=== PATIENT | female | born 1975 | race Caucasian/White ===

== ENCOUNTER 2018-10-24 23:03 | Emergency (ER) | payer OTHER ==
[~2018-10-24] VITALS: Ht 172.7 cm; Wt 104.3 kg
[2018-10-24 23:13] VITALS: BP 170/110
--- NOTE | 2018-10-24 23:16 | NUR ---
PT AMBULATED TO BED 8.
[2018-10-24] MEDS ORDERED: KETOROLAC 60 MG/2 ML VIAL IM ONE (23:25)
--- NOTE | 2018-10-24 23:39 | NUR ---
43/F PRESENTS TO ED, C/O 11/24 INTERMITTENT L FOOT PAIN, X2.5 WEEKS. REPORTS BURNING SENSATION ON TOP OF FOOT, SHARP PAIN ON SIDES OF FOOT. DENIES TRAUMA/INJURY, PT STATED THAT SHE JUST STARTED FEELING L FOOT PAIN, INITIALLY THOUGHT THAT HER SHOES WERE ON TOO TIGHT. PT REPORTS FALL TODAY WHILE TRYING TO GET UP DUE TO PAIN, DENIES LOC OR HEAD TRAUMA. L FOOT WITH NO OBVIOUS SWELLING, REDNESS, +TENDERNESS TO TOUCH. AOX4, GCS 15, AMBULATORY, RR EVEN AND UNLABORED. DENIES HX, RX OR OTC.
--- NOTE | 2018-10-25 00:06 | NUR ---
Patient discharged with v/s stable. Written and verbal after care instructions given and explained. Patient alert, oriented and verbalized understanding of instructions. Ambulatory with steady gait. All questions addressed prior to discharge. ID band removed. Patient advised to follow up with PMD. Rx of IBUPROFEN WAS given. Patient educated on indication of medication including possible reaction and side effects. Opportunity to ask questions provided and answered.
[2018-10-25 00:08] VITALS: BP 170/110
== END 2018-10-25 00:06 | disposition home or self-care (01) ==
LOC: MED 23:03
DX: M79.672 Pain in left foot (principal); F17.200 Nicotine dependence, unspecified, uncomplicated; Z88.0 Allergy status to penicillin
CPT/HCPCS: 96372; 99283; J1885

== ENCOUNTER 2021-03-09 11:29 | Emergency (ER) | payer OTHER ==
[~2021-03-09] VITALS: Ht 172.7 cm; Wt 115.2 kg
[2021-03-09 11:32] VITALS: BP 193/122
[2021-03-09] MEDS ORDERED: AMOX-1000 PO (12:52)
[2021-03-09] MEDS ORDERED: NAPR-54 PO (12:52)
[2021-03-09] MEDS ORDERED: HYDROcodone/APAP 5/325 MG 1 TAB TAB PO ONE (12:55)
[2021-03-09] MEDS ORDERED: BACITRACIN OINT 500 UNITS/GM PKT TP ONE (13:00)
[2021-03-09] MEDS ORDERED: ACETAMINOPHEN EXTRA STRENGTH 500 MG TAB PO ONE (13:15)
[2021-03-09 13:35] VITALS: BP 193/122
--- NOTE | 2021-03-09 13:35 | NUR ---
Patient discharged with v/s stable. Written and verbal after care instructions given and explained. Patient alert, oriented and verbalized understanding of instructions. Ambulatory with steady gait. All questions addressed prior to discharge. ID band removed. Patient advised to follow up with PMD. Rx of augmentin and naprosyn given. Patient educated on indication of medication including possible reaction and side effects. Opportunity to ask questions provided and answered.
--- NOTE | 2021-03-09 13:43 | NUR ---
ANIMAL DOG BITE REPORT DONE AND FAXED OVER TO [facility]
[2021-03-10] MEDS ORDERED: CLIN300C52 PO (01:10)
== END 2021-03-09 13:35 | disposition home or self-care (01) ==
LOC: MED 11:29
DX: S31.815A Open bite of right buttock, initial encounter (principal); S61.251A Open bite of left index finger without damage to nail, initial encounter; S91.051A Open bite, right ankle, initial encounter; Z88.0 Allergy status to penicillin; Z79.899 Other long term (current) drug therapy; W54.0XXA Bitten by dog, initial encounter; Y93.89 Activity, other specified; Y92.89 Other specified places as the place of occurrence of the external cause; Y99.8 Other external cause status
CPT/HCPCS: 90471; 90715; 99283

== ENCOUNTER 2021-03-09 23:09 | Emergency (ER) | payer OTHER ==
[~2021-03-09] VITALS: Ht 172.7 cm; Wt 115.2 kg
[~2021-03-09 23:09] MED LIST: AMOX-1000 PO; NAPR-54 PO
[2021-03-09 23:37] VITALS: BP 156/83
--- NOTE | 2021-03-09 23:46 | NUR ---
PATIENT TO LOBBY
--- NOTE | 2021-03-10 00:48 | NUR ---
PT BROUGHT TO TRIAGE FOR ERMD ASSESSMENT.
--- NOTE | 2021-03-10 00:52 | NUR ---
CLEANED WOUND WITH NS, PLACED GAUZED AND BACITRACIN OINTMENT PER ERMD
[2021-03-10] MEDS ORDERED: BACITRACIN OINT 500 UNITS/GM PKT TP ONE (01:00)
[2021-03-10] MEDS ORDERED: cefTRIAXone 1,000 MG in LIDOCAINE MPF 1% 2.1 ML IM ONE (01:05)
[2021-03-10] MEDS ORDERED: cefTRIAXone 1,000 MG VIAL ONE (01:09)
[2021-03-10] MEDS ORDERED: CLIN300C52 PO (01:10)
[2021-03-10 01:22] VITALS: BP 156/83
--- NOTE | 2021-03-10 01:22 | NUR ---
Patient discharged with v/s stable. Written and verbal after care instructions given and explained. Patient alert, oriented and verbalized understanding of instructions. Ambulatory with steady gait. All questions addressed prior to discharge. ID band removed. Patient advised to follow up with PMD. Rx of CLINDAMYCIN given. Patient educated on indication of medication including possible reaction and side effects. Opportunity to ask questions provided and answered.
== END 2021-03-10 01:18 | disposition home or self-care (01) ==
LOC: MED 23:09
DX: S31.825A Open bite of left buttock, initial encounter (principal); Z79.2 Long term (current) use of antibiotics; Z79.1 Long term (current) use of non-steroidal anti-inflammatories (NSAID); Z88.0 Allergy status to penicillin; W54.0XXA Bitten by dog, initial encounter; Y93.89 Activity, other specified; Y92.89 Other specified places as the place of occurrence of the external cause; Y99.8 Other external cause status
CPT/HCPCS: 96372; 99283; J0696